=== PATIENT | female | born 1990 | race Caucasian/White ===

== ENCOUNTER 2018-01-22 10:22 | Emergency (ER) | payer OTHER ==
[~2018-01-22] VITALS: Ht 157.5 cm; Wt 59.0 kg
[~2018-01-22 10:22] MED LIST: LORA1TAB12 PO; METR0.7528 VAGINAL; NORE1TAB26 PO; SULF400T18 PO
[2018-01-22 10:27] VITALS: BP 142/93; PULSE 75; RESP 16; TEMP 98.3; O2SAT 98
--- NOTE | 2018-01-22 10:47 | PD ---
HPI Chief Complaint: Business Unit Manager Problem/Complaint Time Seen by Provider: 10:40 Travel History International Travel<30 days: No Contact w/Intl Traveler<30days: No Traveled to known affect area: No History of Present Illness HPI Patient presents with complaints of severe pelvic cramping since yesterday. Pain 8 out of 10. . Last menses 3 weeks ago. Sexually active one partner without condoms. Denies any vaginal bleeding or discharge. Denies any odors. Compliant with oral control and benzodiazepine for anxiety. PFSH Past Medical History Immunizations Current: Yes ?: Not LMP: 12/31/17/BCPS Family History Family Hypercholesterolemia: Yes Social History Alcohol Use: No Tobacco Use: No Substance Use: No Allergies-Medications (Allergen,Severity, Reaction): Coded Allergies: No Known Allergies (Unverified Adverse Reaction, Unknown, 01/22/18) Reported Meds & Prescriptions Reported Meds & Active Scripts Active Lomedia 24 Fe 10/22 (Norethindrone-Ethinyl Estradiol-Fe) 1-20 Mg-Mcg Tab 1 Tab PO DAILY Reported Lorazepam 1 Mg Tab 1 Mg PO Q8H PRN Review of Systems General / Constitutional: No: Fever Eyes: No: Visual changes HENT: No: Headaches Cardiovascular: No: Chest Pain or Discomfort Respiratory: No: Shortness of Breath Gastrointestinal: No: Abdominal Pain Genitourinary: No: Dysuria Musculoskeletal: No: Pain Skin: No Rash Neurologic: No: Weakness Psychiatric: No: Depression Endocrine: No: Polydipsia Hematologic/Lymphatic: No: Easy Bruising Physical Exam Narrative GENERAL: Well-nourished, well-developed patient. SKIN: Focused skin assessment warm/dry. HEAD: Normocephalic. EYES: No scleral icterus. No injection or drainage. NECK: Supple, trachea midline. No JVD or lymphadenopathy. CARDIOVASCULAR: Regular rate and rhythm without murmurs, gallops, or rubs. RESPIRATORY: Breath sounds equal bilaterally. No accessory muscle use. GASTROINTESTINAL: Abdomen soft, non-tender, nondistended. MUSCULOSKELETAL: No cyanosis, or edema. BACK: Nontender without obvious deformity. No CVA tenderness. Vaginal mucosa pink moist and healthy in appearance she does have a mild yeast infection. Negative chandelier. Cervix is pink moist and healthy in appearance Data Data Last Documented VS Vital Signs Date Time Temp Pulse Resp B/P (MAP) Pulse Ox O2 Delivery O2 Flow Rate FiO2 01/22/18 11:36 85 16 159/88 (111) 98 Room Air 01/22/18 10:27 98.3 Orders Orders Wet Prep Profile (01/22/18 10:40) Ed Urine Pregnancytest Poc (01/22/18 10:40) Urinalysis - C+S If Indicated (01/22/18 10:47) Us Pelvis Comp W Dop Transvag (01/22/18 ) Labs Laboratory Tests Test 01/22/18 10:40 Urine Collection Type CLEAN CATCH Urine Color YELLOW Urine Turbidity CLEAR Urine pH 6.5 Urine Specific [place] 1.015 Urine Protein NEG mg/dL Urine Glucose (UA) NEG mg/dL Urine Ketones NEG mg/dL Urine Occult Blood NEG Urine Nitrite NEG Urine Bilirubin NEG Urine Urobilinogen 0.2 MG/DL Urine Leukocyte Esterase NEG Urine Squamous Epithelial Cells 0-5 /hpf Urine Amorphous Sediment FEW Microscopic Urinalysis Comment CULT NOT INDICATED Urine Collection Time 1040 Clue Cells (Wet Prep) NONE SEEN Vaginal Trichomonas (Wet Prep) NONE SEEN Vaginal Yeast (Wet Prep) NONE SEEN MDM Medical Decision Making Medical Screen Exam Complete: Yes Emergency Medical Condition: Yes Differential Diagnosis UTI, yeast infection, PID, ovarian cyst, ovarian torsion Narrative Course Assessment and plan discussed with patient at bedside. Pelvic ultrasound revealed a right ovarian cyst and uterine fibroid. Diagnosis Primary Impression: Yeast infection Additional Impressions: Right ovarian cyst Uterine fibroid Qualified Codes: D25.9 - Leiomyoma of uterus, unspecified Patient Instructions: General Instructions Additional Instructions: Antibiotic as directed, pain medication as needed, follow-up with [facility], return to emergency room with any onset of new symptoms. Med/Other Pt SpecificInfo: Prescription(s) given Scripts Tramadol (Ultram) 50 Mg Tab 50 MG PO Q4H Y for PAIN, #10 TAB 0 Refills Prov: Yoni Saucedo MD 01/22/18 Fluconazole (Diflucan) 150 Mg Tab 150 MG PO ONCE for Infection, #1 TAB 0 Refills Prov: Yoni Saucedo MD 01/22/18 Disposition: 01 DISCHARGE HOME Condition: Good Yoni Saucedo MD Jan 22, 2018 10:46
[2018-01-22 11:00] LABS: BILIRUBIN, URINE NEG (NEG); BLOOD, URINE NEG (NEG); GLUCOSE,URINE NEG (NEG); KETONE, URINE NEG (NEG); NITRITE,URINE NEG (NEG); PH, URINE 6.5 (5.0-8.5); URINE COLOR YELLOW (YELLW/STRAW); URINE LEUKOCYTE ESTERASE NEG (NEG)
[2018-01-22 11:04] LABS: AMORPHOUS SEDIMENT, URINE FEW; SQUAMOUS EPITHELIAL CELL URINE 0-5 /hpf (0-5)
[2018-01-22 11:36] VITALS: BP 159/88; PULSE 85; RESP 16; O2SAT 98
--- NOTE | 2018-01-22 11:50 | RADRPT ---
EXAM DATE/TIME: 01/22/2018 11:19 [facility] COMPARISON: No previous studies available for comparison. INDICATIONS : Pelvic pain. MEDICAL HISTORY : Pelvic pain. SURGICAL HISTORY : None. ENCOUNTER: Initial ACUITY: 2 days PAIN SCORE: 7/10 LOCATION: Bilateral Perianal MEASUREMENTS: UTERUS: 7.6 x 5.5 x 5.1 cm ENDOMETRIAL STRIPE: 4 mm RIGHT OVARY: 4.6 x 3.9 x 3.7 cm LEFT OVARY: 3.4 x 1.7 x 1.6 cm FINDINGS: UTERUS: There is a solid hypoechoic mass in the fundal region measuring 3.2 x 2.9 x 2.5 cm. There are small n abothian cysts in the cervical region. RIGHT OVARY: There is a simple appearing cyst measuring 3.2 x 2.8 x 2.6 cm. There is color flow to the ovary. LEFT OVARY: Ovary contains no mass or significant cystic lesion. MISCELLANEOUS: Small to moderate amount of free fluid. CONCLUSION: 1. Moderate size simple appearing cyst in the right ovary. 2. Hypoechoic mass in the fundal region most characteristic of a leiomyoma. 3. Small to moderate amount of free fluid in the cul-de-sac. Lucas Valentino MD on January 22, 2018 at 11:41 Board Certified Radiologist. This report was verified electronically.
[2018-01-22] MEDS ORDERED: TRAM50 PO (12:07)
[2018-01-22] MEDS ORDERED: DIFL150T PO (12:07)
== END 2018-01-22 12:21 | disposition home or self-care (01) ==
LOC: PHED 10:22
DX: B37.9 Candidiasis, unspecified (principal); N83.201 Unspecified ovarian cyst, right side; D25.9 Leiomyoma of uterus, unspecified; Z79.899 Other long term (current) drug therapy
CPT/HCPCS: 76830; 76856; 81001; 84703; 87210; 93975